=== PATIENT | female | born 1990 | race American Indian/Alaskan Native ===

== ENCOUNTER 2017-05-27 20:14 | Emergency (ER) | payer OTHER ==
[2017-05-27 20:32] VITALS: BP 105/67
[2017-05-27] MEDS ORDERED: FLEXERIL PO ONE (21:24)
[2017-05-27] MEDS ORDERED: ULTRAM PO ONE (21:24)
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
== END 2017-05-27 23:01 | disposition home or self-care (01) ==
LOC: ED 20:14
DX: S16.1XXA Strain of muscle, fascia and tendon at neck level, initial encounter (principal); S46.911A Strain of unspecified muscle, fascia and tendon at shoulder and upper arm level, right arm, initial encounter; V87.7XXA Person injured in collision between other specified motor vehicles (traffic), initial encounter; Y93.89 Activity, other specified; Y99.9 Unspecified external cause status; Y92.410 Unspecified street and highway as the place of occurrence of the external cause
CPT/HCPCS: 70140; 72040